=== PATIENT | male | born 1995 | race African-American/Black ===

== ENCOUNTER 2021-01-14 20:38 | Emergency (ER) | payer MEDICAID ==
[~2021-01-14] VITALS: Ht 188 cm; Wt 106.8 kg
[2021-01-14 22:00] VITALS: BP 129/85
== END 2021-01-14 22:37 | disposition home or self-care (01) ==
LOC: EMS 20:40
DX: T39.1X1A Poisoning by 4-Aminophenol derivatives, accidental (unintentional), initial encounter (principal); T40.5X1A Poisoning by cocaine, accidental (unintentional), initial encounter; Y92.89 Other specified places as the place of occurrence of the external cause
CPT/HCPCS: 82962; 93005; 99284